=== PATIENT | male | born 2000 | race Caucasian/White ===

== ENCOUNTER 2021-01-13 19:35 | Emergency (ER) | payer MEDICAID, SELFPAY ==
[2021-01-13 19:42] VITALS: BP 135/75; PULSE 86; RESP 18; TEMP 36.7; O2SAT 98
[2021-01-13 19:59] LABS: Bilirubin Negative (Negative); Blood Negative (Negative); Clarity Clear (Clear); Glucose Negative (Negative); Ketones Negative (Negative); Leukocyte Esterase Negative (Negative); Nitrite Negative (Negative); Urobilinogen 0.2 EU/dL (Up TO 0.2)
--- NOTE | 2021-01-13 20:08 | NUR.NOTE ---
Nursing Note: Pt arrives to the ED cooperative but inappropriate behavior- Yells OW whenever staff get near her, flips off staff when direction given, rolls up shirt sleeves asking who's going to draw my blood? I love needles, threw hospital bracelet at this ad copy writer and stated go fetch. Pt reports that she does not know what she takes for medications and that [facility] in [facility] administers her medications. When asked where she lives she states the [facility] of [facility]. Contacted the 24 hr crisis line and staff were paged. Spoke to farm worker Brynn. Per Dinora report pt can have a tendency to throw things/make a mess/disruptive behavior and has made statements in the past that she will do anything she can to get ketamine. Psychiatric diagnosis given and added to problem list. Brynn will fax an active medication list, and also recommends that we reach out to her DS safe team who are very familiar with this patient and may be able to assist our team. They can be reached at [phone]
--- NOTE | 2021-01-13 20:09 | NUR.NOTE ---
1999-Patient refuses to change into gown, states I don't have to. This is the state of [place]. They metal detected me. Denies weapons or contraband. Provider notified. Shoes removed. Patient gives pack of zigzags to this RN. Belongings labeled and taken to secure closet. Yelling in room, when are you going to draw my blood. Hurry up. 2004-venipuncture performed in R AC. Patient jumps towards RN, laughs. Patient instructed to hold still and cooperate with cares. States I have to get my kicks somehow. I have to entertain myself somehow. Patient refuses gauze and tape over venipuncture site. Holding arm out, trying to drip blood on floor. CPSO in direct line of sight. Lights dimmed. Pillow provided for patient comfort.Nursing Note:
--- NOTE | 2021-01-13 20:17 | NUR.NOTE ---
Per CPSO, patient throws gauze on floor. Refuses to place dressing.Nursing Note:
--- NOTE | 2021-01-13 20:21 | NUR.NOTE ---
Patient picking at superficial wound to left AC. Wiping blood on sweatshirt and linens.Refuses bandage. States What are you going to do, give me Ketamine. [facility] mental health screener en route for eval. Patient instructed on plan of care. States this is a minor injury, so you aren't allowed to give me medical attention. Patient stares at staff, demonstrates manipulative behavior. Nursing Note:
[2021-01-13 20:25] LABS: Abs Immature Grans 0.03 10^3/uL (0.0-0.06); Absolute Basophil Count 0.03 10^3/uL (0.0-0.2); Absolute Eosinophil Count 0.15 10^3/uL (0.0-0.7); Absolute Lymphocyte Count 3.07 10^3/uL (1.2-3.4); Absolute Monocyte Count 0.81 10^3/uL (0.1-0.8); Absolute Neutrophil Count 6.48 10^3/uL (1.2-6.7); Basophils % 0.3; Eosinophils % 1.4; HCT 40.9 % (40.0-50.0); HGB 14.1 g/dL (13.5-17.5); Immature Grans % 0.3; MCH 28.1 pg (27.0-33.0); MCHC 34.5 % (32.0-36.0); MCV 81.6 fL (80-95); Monocytes % 7.7; Neutrophils % 61.3; Nucleated RBC 0 %; Platelet Count 281 10^3/uL (130-400); RBC 5.01 10^6/uL (4.36-5.78); RDW 11.9 % (11.8-14.1); RDW-SD 35.4 fL; WBC 10.57 10^3/uL (4.4-10.8)
[2021-01-13 20:38] LABS: *AMPHETAMINES SCREEN URINE Negative (Negative); *BARBITURATES SCREEN URINE Negative (Negative); *BENZODIAZEPINES SCREEN URINE Negative (Negative); Cannabinoids THC Positive (Negative); Cocaine Screen,Urine Negative (Negative); METHADONE URINE SCREEN Negative (Negative); OPIATES URINE SCREEN Negative (Negative)
--- NOTE | 2021-01-13 20:38 | W.ED.GENAD ---
Discharge Plan Disposition Patient Disposition: HOME Condition: Stable Discharge Details Clinical Impression: Depression Primary Care Provider: Unknown,Unknown ED Provider: Varun Edwards Home Meds and New Rx's Prescriptions: Continued venlafaxine [Effexor XR] 75 mg Capsule,Extended Release 24hr 75 mg PO QAM RF: 0 lamotrigine 200 mg Tablet 200 mg PO DAILY RF: 0 clonazepam 0.5 mg Tablet 0.5 mg PO QAM RF: 0 clonazepam 0.5 mg Tablet 0.5 mg PO DAILY PRNRF: 0 spironolactone 100 mg Tablet 100 mg PO DAILY RF: 0 venlafaxine [Effexor XR] 150 mg Capsule,Extended Release 24hr 150 mg PO QAM RF: 0 omeprazole 40 mg Capsule,Delayed Release(Dr/Ec) 40 mg PO DAILY RF: 0 trazodone 100 mg Tablet 200 mg PO QHS PRNRF: 0 docusate sodium 100 mg Capsule 100 mg PO DAILY RF: 0 estradiol 2 mg Tablet 2 mg PO DAILY RF: 0 ondansetron 4 mg Tablet,Disintegrating 4 mg PO Q8H PRNRF: 0 buspirone 15 mg Tablet 30 mg PO QAM RF: 0 sodium chloride [Saline Nasal] 0.65 % Aerosol,[employer] 2 spray INTRANASAL QID PRNRF: 0 melatonin 10 mg Tablet 10 mg PO HS PRNRF: 0 Discharge Instructions Instructions: Depression (ED) Additional Instructions: At this time you have been provided with a medical screening exam and evaluated by [facility] human services. At this time you are not feeling suicidal and are comfortable discharge home. We have found you a ride with local law enforcement. Please follow the instructions given to you by your discontinued services. Please watch for new or worsening symptoms and return to the ER for any concerns. Lastly, I recommend reaching out your mental health team tomorrow to discuss your ER visit and need for outpatient reevaluation Discharge Data Discharge Date/Time-TO BE ENTERED AT DEPARTURE: 01/13/21 22:10 Medical Decision Making This is a 20-year-old male who identifies as a female presenting for a psychiatric evaluation. Reports acute on chronic depression, vague suicidal thoughts without any desire to act upon her thoughts. She denies any acute medical concerns or complaints. Initially reports that she feels as though a voluntary hospitalization might be beneficial. Because of this, I will obtain routine medical screening laboratory values and a rapid Covid to help expedite potential placement. Patient admits to smoking cigarettes and marijuana but denies regular alcohol or any other drug use. I did place an order for safety plan, CPSO, and a mental health evaluation. Laboratory values reveal a potassium of 3.1, THC positive. Discussed laboratory values with patient. She does not want to take any oral potassium supplementation and she reports that her hormone therapy causes this level to be slightly low and she is aware of this and that this is baseline. She did begin picking at her abrasion in her left antecubital region, she will not allow staff to care for the wound, clean, dress, etc. Mental health evaluation completed, please see official note. At this time patient is not actively suicidal, would like to be discharged home with a safety plan, and has proper outpatient resources for follow-up. Patient tells me that after speaking with mental health and doing some self reflection, she would prefer to be discharged home and does not believe that she requires any hospitalization. She is now agreeable to allowing us to attend to her abrasion in her left antecubital region. She reports feeling safe and does have a safe place to go this evening. Patient [place] living in a hotel [place] of here and does not have any transportation. After contacting [facility] police, we then attempted to contact our care management team to see if they could help with a transport home. Unfortunately this was unsuccessful. Her care team was then contacted and they will provide transportation home but this will likely take 1-1/2 hours. In the meantime patient was able to tolerate p.o. intake, a ham sandwich without difficulty. She is requesting medication. She is specifically requesting IM Haldol, Benadryl, and Ativan however I see no indication of this medication needs to be given. She is actually now cooperative and is not agitated or anxious. We did agree upon giving a single dose of 50 mg p.o. Benadryl prior to discharge Patient was found sitting on the floor outside of exam room 5 stating that the negative pressure in the room was too loud and therefore will not go back to the room. She states is causing a headache, I offered Tylenol or Motrin but the patient declines. Patient is beginning to have escalating behavior, argumentative, agitated towards staff. She states that she will not go back into her room. I explained to her that she has been discharged and we have been able to provide a ride home but this will likely take some time, in the meantime I would like her to remain calm and cooperative, she could either go back to exam room 5 or can be discharged from the ER to go outside and wait for her ride. Patient refused to do either. [facility] security was contacted to escort the patient out of the ER. She once again became agitated, verbally abusive, was eventually escorted out of the ER by security and ER staff. Lab Data Lab results reviewed: Yes I reviewed the patient's lab results. Labs: Laboratory Tests Range/Units 01/13/21 01/13/21 01/13/21 19:45 19:45 20:05 WBC (4.4-10.8) 10^3/uL RBC (4.36-5.78) 10^6/uL Hgb (13.5-17.5) g/dL Hct (40.0-50.0) % MCV (80-95) fL MCH (27.0-33.0) pg MCHC (32.0-36.0) % RDW (11.8-14.1) % Plt Count (130-400) 10^3/uL MPV (8.0-11.0) fL Immature Gran % Neutrophils % Lymphocytes % Monocytes % Eosinophils % Basophils % Nucleated RBC % % Absolute Neutrophils (1.2-6.7) 10^3/uL Absolute Lymphocytes (1.2-3.4) 10^3/uL Absolute Monocytes (0.1-0.8) 10^3/uL Absolute Eosinophils (0.0-0.7) 10^3/uL Absolute Basophils (0.0-0.2) 10^3/uL Sodium (136-145) mmol/L 139 Potassium (3.5-5.1) mmol/L 3.1 L Chloride (98-107) mmol/L 103 Carbon Dioxide (21.0-32.0) mmol/L 25.8 Anion Gap (3-11) mmol/L 10.2 BUN (7-18) mg/dL 9 Creatinine (0.70-1.30) mg/dL 0.7 Estimated GFR/1.73 m2 (mL/min/1.73m2) >= 60.00 Glucose (74-106) mg/dL 112 H Calcium (8.5-10.1) mg/dL 9.2 Total Bilirubin (0.2-1.0) mg/dL 0.1 L AST (15-37) U/L 18 ALT (16-63) U/L 26 Alkaline Phosphatase (46-116) U/L 109 Total Protein (6.4-8.2) g/dL 7.6 Albumin (3.4-5.0) g/dL 4.2 TSH (0.36-3.74) uIU/mL 2.86 Urine Color (Yellow) Yellow Urine Clarity (Clear) Clear Urine pH (5-8) 6.0 Ur Specific [place] (1.005-1.025) 1.020 Urine Protein (Negative) mg/dL Negative Urine Ketones (Negative) mg/dL Negative Urine Blood (Negative) Negative Urine Nitrite (Negative) Negative Urine Bilirubin (Negative) Negative Urine Urobilinogen (Up TO 0.2) EU/dL 0.2 Ur Leukocyte Esterase (Negative) Negative Urine Glucose (Negative) mg/dL Negative Salicylates (<2.8) mg/dL Urine Opiates Screen (Negative) Negative Urine Methadone Screen (Negative) Negative Acetaminophen (10-30) ug/mL Ur Barbiturates Screen (Negative) Negative Ur Tricyclics Screen (Negative) Negative Ur Amphetamines Screen (Negative) Negative U Benzodiazepines Scrn (Negative) Negative Urine Cocaine Screen (Negative) Negative Ur THC Screen (Negative) Positive A Ethyl Alcohol (<3) mg/dL < 3.0 Range/Units 01/13/21 01/13/21 20:05 20:05 WBC (4.4-10.8) 10^3/uL 10.57 RBC (4.36-5.78) 10^6/uL 5.01 Hgb (13.5-17.5) g/dL 14.1 Hct (40.0-50.0) % 40.9 MCV (80-95) fL 81.6 MCH (27.0-33.0) pg 28.1 MCHC (32.0-36.0) % 34.5 RDW (11.8-14.1) % 11.9 Plt Count (130-400) 10^3/uL 281 MPV (8.0-11.0) fL 10.0 Immature Gran % 0.3 Neutrophils % 61.3 Lymphocytes % 29.0 Monocytes % 7.7 Eosinophils % 1.4 Basophils % 0.3 Nucleated RBC % % 0 Absolute Neutrophils (1.2-6.7) 10^3/uL 6.48 Absolute Lymphocytes (1.2-3.4) 10^3/uL 3.07 Absolute Monocytes (0.1-0.8) 10^3/uL 0.81 H Absolute Eosinophils (0.0-0.7) 10^3/uL 0.15 Absolute Basophils (0.0-0.2) 10^3/uL 0.03 Sodium (136-145) mmol/L Potassium (3.5-5.1) mmol/L Chloride (98-107) mmol/L Carbon Dioxide (21.0-32.0) mmol/L Anion Gap (3-11) mmol/L BUN (7-18) mg/dL Creatinine (0.70-1.30) mg/dL Estimated GFR/1.73 m2 (mL/min/1.73m2) Glucose (74-106) mg/dL Calcium (8.5-10.1) mg/dL Total Bilirubin (0.2-1.0) mg/dL AST (15-37) U/L ALT (16-63) U/L Alkaline Phosphatase (46-116) U/L Total Protein (6.4-8.2) g/dL Albumin (3.4-5.0) g/dL TSH (0.36-3.74) uIU/mL Urine Color (Yellow) Urine Clarity (Clear) Urine pH (5-8) Ur Specific [place] (1.005-1.025) Urine Protein (Negative) mg/dL Urine Ketones (Negative) mg/dL Urine Blood (Negative) Urine Nitrite (Negative) Urine Bilirubin (Negative) Urine Urobilinogen (Up TO 0.2) EU/dL Ur Leukocyte Esterase (Negative) Urine Glucose (Negative) mg/dL Salicylates (<2.8) mg/dL < 2.8 Urine Opiates Screen (Negative) Urine Methadone Screen (Negative) Acetaminophen (10-30) ug/mL < 2 Ur Barbiturates Screen (Negative) Ur Tricyclics Screen (Negative) Ur Amphetamines Screen (Negative) U Benzodiazepines Scrn (Negative) Urine Cocaine Screen (Negative) Ur THC Screen (Negative) Ethyl Alcohol (<3) mg/dL HPI General Mode of arrival: ambulatory. Date/Time Provider Initiated Documentation: 01/13/21 19:50. Limitations to Documentation: no limitations. Information obtained by: patient. HPI Narrative: This is a 20-year-old male who identifies as a female and prefers to be addressed as Nyka presenting to the ER via police, but not in custody, for a psychiatric evaluation. Has a past medical history of major depression, disruptive mood dysregulation disorder, autism, reporting chronic depression, suicidal thoughts but no active plan or desire to act upon them. Patient does state that she superficially cut her forearms and did cut her left antecubital region earlier today superficially because she wanted to feel the blood but not an attempt to kill herself. She denies any acute medical concerns or complaints. Denies recent illness or trauma. Denies fever, headache, chest pain, shortness of breath, abdominal pain, nausea, vomiting, change in bowel or bladder function, skin rash. Patient denies any new stressors, reports that her symptoms are chronic, and that she would like to talk with someone about them. She reports that she is taking all of her medications as directed. She does tell me that she has a remote history of attempting to overdose on medications. Related Data Home Medications Medication Instructions Recorded Confirmed buspirone 30 mg PO QAM 01/13/21 01/13/21 clonazepam 0.5 mg PO DAILY PRN 01/13/21 01/13/21 clonazepam 0.5 mg PO QAM 01/13/21 01/13/21 docusate sodium 100 mg PO DAILY 01/13/21 01/13/21 estradiol 2 mg PO DAILY 01/13/21 01/13/21 lamotrigine 200 mg PO DAILY 01/13/21 01/13/21 melatonin 10 mg PO HS PRN 01/13/21 01/13/21 omeprazole 40 mg PO DAILY 01/13/21 01/13/21 ondansetron 4 mg PO Q8H PRN 01/13/21 01/13/21 sodium chloride [Saline Nasal] 2 spray INTRANASAL QID PRN 01/13/21 01/13/21 spironolactone 100 mg PO DAILY 01/13/21 01/13/21 trazodone 200 mg PO QHS PRN 01/13/21 01/13/21 venlafaxine [Effexor XR] 75 mg PO QAM 01/13/21 01/13/21 venlafaxine [Effexor XR] 150 mg PO QAM 01/13/21 01/13/21 Allergies Allergy/AdvReac Type Severity Reaction Status Date / Time aripiprazole [From Abilify] Allergy Other (See Unverified 01/13/21 20:49 Comment) atomoxetine [From Strattera] Allergy Other (See Unverified 01/13/21 20:50 Comment) clonidine Allergy Other (See Unverified 01/13/21 20:49 Comment) divalproex sodium Allergy Other (See Unverified 01/13/21 19:46 [From Depakote] Comment) mirtazapine Allergy Agitation Unverified 01/13/21 20:49 prazosin Allergy Other (See Unverified 01/13/21 20:49 Comment) ziprasidone Allergy Other (See Unverified 01/13/21 20:49 Comment) quetiapine AdvReac Other (See Unverified 01/13/21 20:49 Comment) risperidone AdvReac Other (See Unverified 01/13/21 20:49 Comment) General Stated Complaint: PsychEval KIMMIE: 2 Review of Systems Constitutional Constitutional: Denies fever(s) and Denies headache(s) ENT Ears, Nose, Mouth, and Throat: Denies headache(s) Cardiovascular Cardiovascular: Denies chest pain and Denies dyspnea Respiratory Respiratory: Denies cough and Denies dyspnea Gastrointestinal Gastrointestinal: Denies abdominal pain, Denies nausea and Denies vomiting Genitourinary Genitourinary: Denies dysuria Musculoskeletal Musculoskeletal: Denies back pain Integumentary/Breasts Skin/Breast: Denies rash Neurologic Neurologic: Denies headache(s) Psychiatric Psychiatric: Reports anxiety, Reports depression, Denies homicidal ideation and Reports suicidal ideation [facility] Medical History Autistic disorder DMDD (disruptive mood dysregulation disorder) History of reactive attachment disorder Major depression Social History Smoking risk assessment performed?: No Exam Const General: healthy appearing, comfortable and anxious Orientation: alert, awake and oriented x3 HENMT Head: normal to inspection, normocephalic and atraumatic Face and sinus: normal facial exam Mouth: moist mucous membranes Eyes General: appearance normal, both eyes and all related structures Conjunctivae: conjunctivae normal Neck Neck: normal visual inspection, trachea midline and supple Resp Effort & Inspection: normal respiratory effort and able to speak in complete sentences Auscultation: clear to auscultation bilaterally Cardio Rate: regular rate Rhythm: regular rhythm GI Palpation: soft and nontender Back/Spine/Pelvis Back: No back tenderness Skin General skin exam: no rashes or lesions noted Neuro General: patient alert, patient awake, patient oriented x3, moves all extremities and no focal motor deficits Cognition: normal cognition Speech: speech normal Gait: normal gait Motor: muscle tone normal throughout Sensory Exam: no sensory deficits noted Extrem General: full ROM and capillary refill normal Elbow/forearm/wrist images: 1. Superficial abrasion, no active bleeding Psych Appearance: disheveled Mental Status: mental status grossly normal Speech and Movement: agitated Mood: dysthymic mood Affect: irritable affect Attitude: other (Initially uncooperative) Thought Process: normal Thought Content: suicidality (Chronic, vague, no plan or desire to act on thoughts) Insight: fair Judgment: fair Course Vital Signs Vital signs: Vital Signs Temperature 36.7 C 01/13/21 19:42 Pulse 86 01/13/21 19:42 Respiratory Rate 18 01/13/21 19:42 Blood Pressure 135/75 01/13/21 19:42 Pulse Oximetry 98 01/13/21 19:42 Temperature 36.7 C 01/13/21 19:42 Temperature Source Oral 01/13/21 19:42 Pulse 86 01/13/21 19:42 Respiratory Rate 18 01/13/21 19:42 Blood Pressure 135/75 01/13/21 19:42 Blood Pressure Position Sitting 01/13/21 19:42 Pulse Oximetry 98 01/13/21 19:42 Oxygen Delivery Method Room Air 01/13/21 19:42 Oxygen Flow Rate 0 01/13/21 19:42 Lab/Test Results Lab/Test Results: Laboratory Tests Range/Units 01/13/21 01/13/21 19:45 20:05 WBC (4.4-10.8) 10^3/uL 10.57 RBC (4.36-5.78) 10^6/uL 5.01 Hgb (13.5-17.5) g/dL 14.1 Hct (40.0-50.0) % 40.9 MCV (80-95) fL 81.6 MCH (27.0-33.0) pg 28.1 MCHC (32.0-36.0) % 34.5 RDW (11.8-14.1) % 11.9 Plt Count (130-400) 10^3/uL 281 MPV (8.0-11.0) fL 10.0 Immature Gran % 0.3 Neutrophils % 61.3 Lymphocytes % 29.0 Monocytes % 7.7 Eosinophils % 1.4 Basophils % 0.3 Nucleated RBC % % 0 Absolute Neutrophils (1.2-6.7) 10^3/uL 6.48 Absolute Lymphocytes (1.2-3.4) 10^3/uL 3.07 Absolute Monocytes (0.1-0.8) 10^3/uL 0.81 H Absolute Eosinophils (0.0-0.7) 10^3/uL 0.15 Absolute Basophils (0.0-0.2) 10^3/uL 0.03 Urine Color (Yellow) Yellow Urine Clarity (Clear) Clear Urine pH (5-8) 6.0 Ur Specific [place] (1.005-1.025) 1.020 Urine Protein (Negative) mg/dL Negative Urine Ketones (Negative) mg/dL Negative Urine Blood (Negative) Negative Urine Nitrite (Negative) Negative Urine Bilirubin (Negative) Negative Urine Urobilinogen (Up TO 0.2) EU/dL 0.2 Ur Leukocyte Esterase (Negative) Negative Urine Glucose (Negative) mg/dL Negative
[2021-01-13 20:40] LABS: Tricyclic Antidepressants Negative (Negative)
--- NOTE | 2021-01-13 20:41 | NUR.NOTE ---
Francisca, dump worker at bedside for evaluation. Patient requests benadryl, ativan and haldol, To take the edge off.Nursing Note:
[2021-01-13 20:46] LABS: ALT 26 U/L (16-63); AST 18 U/L (15-37); Albumin 4.2 g/dL (3.4-5.0); Alkaline Phosphatase 109 U/L (46-116); Anion Gap 10.2 mmol/L (3-11); BUN 9 mg/dL (7-18); Bilirubin, Total 0.1 mg/dL (0.2-1.0); CO2 25.8 mmol/L (21.0-32.0); CREATININE 0.7 mg/dL (0.70-1.30); Calcium 9.2 mg/dL (8.5-10.1); Chloride 103 mmol/L (98-107); Glucose 112 mg/dL (74-106); Potassium 3.1 mmol/L (3.5-5.1); Sodium 139 mmol/L (136-145); TSH (W/Ref FT4) 2.86 uIU/mL (0.36-3.74); Total Protein 7.6 g/dL (6.4-8.2)
[2021-01-13 20:55] LABS: Salicylate < 2.8 mg/dL (<2.8)
[2021-01-13 20:57] LABS: ETHANOL BLOOD < 3.0 mg/dL (<3)
[2021-01-13 20:58] LABS: Acetaminophen < 2 ug/mL (10-30)
--- NOTE | 2021-01-13 21:08 | NUR.NOTE ---
Ambulates to restroom with steady gait.Nursing Note:
--- NOTE | 2021-01-13 21:12 | NUR.NOTE ---
Patient requests RN to bedside, states I would like to apologize for my behavior earlier. I was just anxious and when I get anxious, I have impulse control issues. Requests results of urine drug screen, left arm to be cleaned up and water Mental health screener, Francisca remains at bedside. Nursing Note:
--- NOTE | 2021-01-13 21:25 | PDOC.MHCN_ITS ---
Date of service: 01/13/21 Time of Service: 21:26 Mental Health Crisis Note Presenting Issue How did you arrive at the ED and why did you come: Pt arrived via [facility] from [facility] because this is where the Pt wanted to come. She had reported to [facility] and then [facility] staff that she was suicidal. Precipitating Factors Pt admitted that she is chronically suicidal however, denied a plan or intent. She denied HI and there are no signs of delusions. Disposition BEHAVIOR: Pt is a transgender from male to female and identifies as Brittaney. Pt is manipulative and verbally aggressive when [facility] arrived per hospital reports. She is reported to be asking for Ketamine in hopes that she gets it. this clinician over heard her ask for IM Haldol before she leaves. She was told no. She attempted to manipulate this clinician as well however, this clinician was aware of her behaviors before entering her room. She asked if [facility] could refuse her if they don't want her because that is where she wants to go. This clinician informed her they could as they are a private hospital. Pt then changed her behavior and responses were at no risk. She reported that she has been in the hospital 8 times in the last 8 weeks and the most recent was Saturday at [facility]. EYE CONTACT: Good eye contact. MOOD: She described her mood as anxious. AFFECT: Affect is normal. APPETITE: Pt reported her appetite is fine. SLEEP(trouble falling/staying asleep: Pt stated she has not slept well since she was at [facility] on Saturday. Plan Pt is discharging back to the group home she is staying. She reported that she knows how to outreach to her team at [facility] if she is in crisis and has coping skills of playing video games, listening to loud music, reading, and watching horror movies. She reported that she cuts superficially to feel the blood drip down her arm. She has not intent on acting on her thoughts of SI. Signature Clinician's Name/Title: Francisca Romano MS, [facility] Emergency Services Clinician, [facility]
--- NOTE | 2021-01-13 21:48 | NUR.NOTE ---
[facility] returns call, unable to provide courtesy ride. Call placed to DS; awaiting call back.Nursing Note:
--- NOTE | 2021-01-13 21:51 | NUR.NOTE ---
2145-Ham sandwich and water provided.Nursing Note:
--- NOTE | 2021-01-13 22:02 | NUR.NOTE ---
Patient sitting in folding chair in hallway. Refuses to wait in room. Offered to go to waiting room or outside; patient refuses. Security called to escort patient from ED.Nursing Note:
--- NOTE | 2021-01-13 22:12 | NUR.NOTE ---
Patient escorted from Unit, with possessions, by BELLY DUMP DRIVER. Gait steady. Patient yells, I hate you fucking assholes.Nursing Note:
--- NOTE | 2021-01-13 23:15 | NUR.NOTE ---
2153Mónica, patient case managers with DS returns call. Will activate responder to take patient home. ETA 0000. Patient verbalizes understanding and agreement with plan of care. Agrees to remain calm and cooperative.Nursing Note:
--- NOTE | 2021-01-13 23:17 | NUR.NOTE ---
2308-[facility] called for patient disruptive behavior. Sitting in vestibule, screaming at staff, requesting to use restroom, and to wait in her patient room. Patient instructed to use port a potty outside and continue to remain calm and wait for her ride home. Patient states Do you even speak burundian, you stupid cunt. Nursing Note:
== END 2021-01-13 22:10 | disposition home or self-care (01) ==
PROVIDERS: Emergency Provider Physician Assistant
DX: F32.9 Major depressive disorder, single episode, unspecified (principal); R45.851 Suicidal ideations
CPT/HCPCS: 80053; 80307; 99285; 80320; 80329; 81003; 84443; 85025; 99283